=== PATIENT | female | born 1935 | race Caucasian/White ===

== ENCOUNTER 2018-11-14 07:25 | Day surgery (SDC) | payer MEDICARE ==
--- NOTE | 2018-11-14 05:58 | History and Physical Report ---
DATE: 11/14/2018. PRIMARY CARE PHYSICIAN: Popeye Ba D.O. CHIEF COMPLAINT AND HISTORY OF CHIEF COMPLAINT: This patient presents with a history of intractable lumbar radiculopathy. On 10/23/2018, a spinal cord stimulator trial was conducted with 75 to 85 percent pain control. Due to the failure of all therapies and the success of the trial, the patient presents today for implantation of a permanent system. PAST MEDICAL HISTORY: Hypertension, bladder dysfunction, thrombophlebitis. PAST SURGICAL HISTORY: Hysterectomy, hip replacement, thyroid surgery, knee replacement. EMPLOYMENT STATUS: Retired. MEDICATIONS ON ADMISSION: To be provided. ALLERGIES: Penicillin. SOCIAL HISTORY: Caffeine. FAMILY HISTORY: Thyroid disease, diabetes, hypertension. REVIEW OF SYSTEMS: The patient is appropriate and in no acute distress. The remainder of the systems review shows glasses, degenerative arthritis, difficulty sleeping. PHYSICAL EXAMINATION: General: Height and weight unavailable. Vital Signs: Not available. HEENT: Within normal limits. Lungs: Clear. Heart: Rapid and regular. Abdomen: Nontender. Musculoskeletal: Examination of the musculoskeletal system shows diffuse tenderness throughout the lumbar spine. Range of motion produces pain into both legs focusing below the knees and into the calf muscle and feet. There current are no motor or sensory abnormalities. Pain pattern follows L5 and in particular S1. Ambulation: No assistive device utilized. Neurologic: Cranial nerves are intact. IMPRESSION: LUMBAR RADICULOPATHY, ICD-10 CODE M54.16 AND M54.17. PLAN: The patient is here for implantation of a permanent spinal cord stimulator on an outpatient basis. The patient will be considered for a possible overnight stay. The potential risks, side effects, and complications have all been carefully reviewed and discussed. JOB NUMBER: [id number] cc: Popeye Ba D.O. MTDD
[~2018-11-14 07:25] MED LIST: ACETAMINOPHEN 1,000 MG/100 ML BTL IVPB ONE; CLINDAMYCIN 600MG/50ML PREMIX 600 MG/50 ML BAG IVPB ONE; FAMOTIDINE 20MG TABLET PO ONE; MECLIZINE 25 MG TABLET PO ONE
[2018-11-14] MEDS ORDERED: FENTANYL PF 100MCG/2ML VIAL IV ONE (07:26)
[2018-11-14] MEDS ORDERED: PROPOFOL 10 MG/ML VIAL IV ONE (07:26)
[2018-11-14] MEDS ORDERED: LIDOCAINE 2% MDV (20MG/ML) 20ML VIAL IV ONE (07:26)
[2018-11-14] MEDS ORDERED: MIDAZOLAM HCL 2MG/2ML VIAL IV ONE (07:26)
[2018-11-14] MEDS ORDERED: RINGERS SOLUTION,LACTATED 1,000 ML IV ONE ×3 (08:10→10:45)
[2018-11-14] MEDS ORDERED: LIDOCAINE 1% W/EPI 1:100,000 MDV 20 ML VIAL SQ ONE (10:30)
[2018-11-14] MEDS ORDERED: BUPIVACAINE 0.5% W/EPI MPF 30 ML VIAL SQ ONE (10:30)
[2018-11-14] MEDS ORDERED: FENTANYL PF 100MCG/2ML VIAL IVP ONE (11:12)
[2018-11-14] MEDS ORDERED: ALPRAZOLAM 0.25 MG TABLET PO PRN (11:28)
[2018-11-14] MEDS ORDERED: AL HYDROX/MAG HYDROX 30ML UD PO PRN (11:30)
[2018-11-14] MEDS ORDERED: ACETAMINOPHEN 325 MG TAB PO PRN ×2 (11:30)
[2018-11-14] MEDS ORDERED: HYDROCODONE/APAP 7.5/325MG TABLET PO PRN (11:30)
[2018-11-14] MEDS ORDERED: DIPHENHYDRAMINE HCL 50 MG/ML VIAL IVP PRN ×2 (11:30)
[2018-11-14] MEDS ORDERED: OXYCODONE/APAP 10MG-325MG TABLET PO PRN ×2 (11:30)
[2018-11-14] MEDS ORDERED: SENNOSIDES/DOCUSATE SODIUM UD CAPSULE PO PRN ×2 (11:30)
[2018-11-14] MEDS ORDERED: DIPHENHYDRAMINE HCL 25 MG CAPSULE PO PRN ×2 (11:30)
[2018-11-14] MEDS ORDERED: HYDROMORPHONE HCL 2 MG/ML VIAL IM PRN ×2 (11:30)
[2018-11-14] MEDS ORDERED: TEMAZEPAM 15 MG CAPSULE PO PRN ×2 (11:30)
[2018-11-14] MEDS ORDERED: ONDANSETRON 4 MG ODT TABLET SL PRN (12:40)
[2018-11-14] MEDS ORDERED: ONDANSETRON HCL IV 4 MG/2 ML VIAL IVP PRN (12:40)
[2018-11-14] MEDS: HYDROCODONE/APAP 7.5/325MG TABLET PO PRN ×4 (13:23→23:45)
[2018-11-14] MEDS: CLINDAMYCIN 600MG/50ML PREMIX 600 MG/50 ML BAG IVPB SCH (16:55)
--- NOTE | 2018-11-14 19:40 | Operative Note ---
DATE OF SURGERY: 11/14/2018 PREOPERATIVE DIAGNOSIS: Lumbar radiculopathy, ICD10 code M54.16 and M54.17. OPERATION: 1. Fluoroscopic-guided left epidural access at L2-3, placement of spinal cord stimulator lead 1 [employer] Infinion 16, 6 electrodes positioned left T10. 2. Fluoroscopic-guided epidural access left L3-4, placement of spinal cord stimulator lead 2 [employer] Infinion 16, 6 electrodes positioned right T10. 3. Complex programming of lead 1 over 20 minutes followed by complex programming of lead 2 over 20 minutes. 4. Incision and subcutaneous dissection and anchoring of lead 1 and lead 2 to supraspinous fascia with a [employer] locking anchor, nonabsorbable suture. 5. Incision and subcutaneous dissection and creation of subcutaneous pouch at left posterior gluteal margin for placement of generator identified as [employer] programmable rechargeable. 6. Tunneling between lead pouch and a generator pouch, placement of external portion of lead 1 and lead 2 into generator pouch, each lead interfaced with generator. 7. Placement of leads into pouch. Placement of generator into pouch. Closure of both incisions using 2-0 Vicryl for fascia, sue for skin. OpSite dressing placed. A complex recovery room programming internal generator home use 2 stimulators recovery room 20 minutes. SURGEON: Serge Pérez, ANESTHESIA: Local with sedation. ANESTHESIA PROVIDER: Dhaval Le INDICATION: This patient presents with a history of intractable lumbar radiculopathy that focused below the knees into the feet. Due to the failure of therapy, a spinal cord stimulator trial was conducted in the office with 75% plus pain control. Due to the failure of all therapies and the success of the trial, she presents today for implantation of permanent system. PROCEDURE: Intravenous line, vital sign monitoring, IV sedation. Prepped and draped with sterile technique. Patient positioned prone. Sterile prep, sterile technique. From the left, the epidural interspace at L2-3 and 3-4 were both marked, infiltrated with local. Using curved access Epimed needles with loss of resistance, the space was accessed. At L2-3, spinal cord stimulator lead 1, a [employer] Infinion 16 with 6 electrodes was positioned left of midline at T10. With the access at L3-4, same technique, spinal cord stimulator lead 2, [employer] Infinion 16 with 6 electrodes positioned right of T10. With the patient awake, complex programming of the 2 leads, 20 minutes left and 20 minutes right was performed eventually resulting in complete pattern stimulation into the legs, calf muscles and feet. Patient indicating we had all the areas of the pain. She was given the option to implant and continue to program or remove. She opted to implant. The question was repeated with the same response. The skin above and below both needles was infiltrated with local. Incision was made and subcutaneous dissection was conducted to supraspinous fascia. The needles were removed and each lead was anchored to the supraspinous fascia with a [employer] locking anchor and nonabsorbable suture. At the left posterior gluteal margin, which was the site picked by the patient for the generator, the skin was infiltrated, incision made, and subcutaneous dissection was conducted to form a pouch of suitable size and depth for the generator, a [employer] programmable rechargeable WaveWriter. A tunneling tool was then used to carry the leads in the generator pouch, and each lead was interfaced with the generator. Antibiotic irrigation and Bovie for hemostasis. With the leads in the pouch, both incisions were closed using 2-0 Vicryl fascia and sue for skin. An OpSite dressing was placed. She was transported to recovery room stable. Painful with respect to shoulders, which is an arthritic area. When more awake and alert, complex programming of the generator performed over 20 minutes reestablishing stimulation into her primary area of pain. Because of age and the surgery, she will be kept overnight for observation and discharged in the morning. DISCHARGE INSTRUCTIONS: 1. The sites will remain clean and dry. No showering or bathing in any way that would disrupt dressings. If it happens, contact the clinic. 2. Standard medications resumed including the antibiotic Levaquin 500 mg once a day for 14 days. 3. The office will contact the patient to set up an evaluation time in the next 7-10 days for us to evaluate the sites. Until then, she is to keep her activities low. All other instructions were provided with numbers to contact if problems given. We will see her, evaluate her incisions, and remove sue. CC: Dr. Papo SQUIRES
[2018-11-14] MEDS ORDERED: 0.9 % SODIUM CHLORIDE 10ML SYR IVP SCH (22:00)
[2018-11-14] MEDS ORDERED: ATORVASTATIN 20 MG TABLET PO SCH (22:00)
[2018-11-15] MEDS: CLINDAMYCIN 600MG/50ML PREMIX 600 MG/50 ML BAG IVPB SCH ×2 (00:57→08:13)
[2018-11-15] MEDS: HYDROCODONE/APAP 7.5/325MG TABLET PO PRN (06:34)
[2018-11-15] MEDS ORDERED: LEVOTHYROXINE SODIUM 125 MCG TABLET PO SCH (07:00)
[2018-11-15] MEDS ORDERED: LOSARTAN POTASSIUM 100 MG TABLET PO SCH (10:00)
[2018-11-15] MEDS ORDERED: HYDROCHLOROTHIAZIDE 25 MG TABLET PO SCH (10:00)
--- NOTE | 2018-11-16 12:28 | RADIOLOGY REPORT ---
STUDY: Spine 1 view. CLINICAL HISTORY: Spinal cord stimulator implant. TECHNIQUE: Single AP portable supine view of the thoracic and [id number] lumbar portions of the spine obtained. COMPARISON: None. FINDINGS: There are diffuse degenerative disc and endplate changes throughout the visualized spine. On lytic or blastic bone lesion. Mild levocurvature of the lumbar spine. A dual-lead intraspinal stimulator is in place. The leads enter the spinal canal near the mid lumbar level. Lead tips project at the T9-T10 level. The surgical skin sue are noted near the midline at the mid lumbar level as well as in the region of the left flank where the leads connect to a stimulator generator. IMPRESSION: Dual-lead intraspinal stimulator in place with lead tips at the T9- T10 level. MTDD
== END 2018-11-15 09:20 | disposition home or self-care (01) ==
LOC: SUR 07:25 → MEDSURG 11:30 → SUR 11-15 09:20
PROVIDERS: ATTEND Pain Medicine Interventional Pain Medicine
DX: M54.16 Radiculopathy, lumbar region (principal); M54.17 Radiculopathy, lumbosacral region; I10 Essential (primary) hypertension; Z79.4 Long term (current) use of insulin; E78.00 Pure hypercholesterolemia, unspecified; R06.02 Shortness of breath; G47.33 Obstructive sleep apnea (adult) (pediatric); Z86.718 Personal history of other venous thrombosis and embolism; Z79.01 Long term (current) use of anticoagulants; E03.9 Hypothyroidism, unspecified
CPT/HCPCS: 63650; 63685; 01936; 95972; 72020; J3010; C1820; C1883; J7120

== ENCOUNTER 2019-05-17 07:01 | Day surgery (SDC) | payer MEDICARE ==
[2019-05-17] MEDS ORDERED: RINGERS SOLUTION,LACTATED 1,000 ML IV ONE (07:48)
--- NOTE | 2019-05-17 11:07 | History and Physical Report ---
DATE OF ADMISSION: 05/16/2019 CHIEF COMPLAINT/HISTORY OF CHIEF COMPLAINT: This patient presents with a history of intractable cervical radiculopathy. Due to the failure of therapy, a cervical spinal cord stimulator trial was conducted on 03/05/2019 with what she indicated at 75 to 85% pain control. Due to the failure of therapy and the success of the trial, she presents for implantation of a permanent system. MEDICAL HISTORY: Hypertension, bladder dysfunction, thrombophlebitis. SURGICAL HISTORY: Hysterectomy, hip replacement, thyroid surgery, knee replacement. CURRENT MEDICATIONS: Does include blood thinners. ALLERGIES: PENICILLIN. SOCIAL HISTORY: Caffeine. FAMILY HISTORY: Thyroid disease, diabetes, hypertension. SYSTEMS REVIEW: patient appropriate, no acute distress. degenerative arthritis, difficulty sleeping. PHYSICAL EXAMINATION: GENERAL: Height is 5 feet 9 inches, weight is 250. HEENT: Within normal limits. HEART: Rapid and regular. ABDOMEN: Nontender. MUSCULOSKELETAL: Shows diffuse tenderness cervical spine left of the midline. Range of motion does produce pain to the left shoulder and arm, moving towards the posterior scapular border. Although the sensory field is intact, there is motor weakness throughout the upper extremity on the left. 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 NEUROLOGIC: Cranial nerves are intact. IMPRESSION: Left cervical radiculopathy. ICD 10 code M54.12. PLAN: Due to the failure of conservative options and the success with a stimulator trial and by her request, she is here for permanent implantation of a system. The potential risks, side effects, and complications reviewed and discussed. The procedure will be considered outpatient, although an overnight stay will be evaluated. She has been put in contact with a clinical specialist, who has also answered questions and reviewed the information in detail. CC: Dr. Papo SQUIRES
== END 2019-05-17 09:25 | disposition home or self-care (01) ==
LOC: SUR 07:01
PROVIDERS: ATTEND Pain Medicine Interventional Pain Medicine
DX: Z53.8 Procedure and treatment not carried out for other reasons (principal)
CPT/HCPCS: J7120